=== PATIENT | male | born 1995 | race Caucasian/White ===

== ENCOUNTER 2022-04-04 08:22 | Emergency (ER) | payer OTHER ==
[~2022-04-04] VITALS: Ht 172.7 cm; Wt 72.6 kg
[2022-04-04] MEDS ORDERED: DOXYCYCLINE150 MG PO (08:32)
[2022-04-04] MEDS ORDERED: DOXYCYCLINE HY100 M3 PO (10:48)
== END 2022-04-04 10:59 | disposition home or self-care (01) ==
LOC: ER 08:22
DX: N39.0 Urinary tract infection, site not specified (principal); A64 Unspecified sexually transmitted disease